=== PATIENT | female | born 1985 | race Caucasian/White ===

== ENCOUNTER 2018-04-10 15:19 | Emergency (ER) | payer OTHER ==
[~2018-04-10] VITALS: Ht 172.7 cm; Wt 54.4 kg
[~2018-04-10 15:19] MED LIST: CLEOCIN HCL300 MG PO; KEFLEX500 MG PO; NOHOMEMEDICATIONS; NORCO 5-325 TA1 EACH PO; ONDANSETRON HCL4 M2 PO; PRENATAL; ZOFRAN ODT4 MG PO; ZOFRAN ODT4 MG SUBLING
[2018-04-10] MEDS ORDERED: PROZAC20 MG PO (15:29)
[2018-04-10] MEDS ORDERED: KEFLEX500 M1 PO (15:50)
[2018-04-10] MEDS ORDERED: ACETAMINOPHEN-1 EAC1 PO (15:50)
[2018-04-10 15:56] VITALS: BP 111/67
== END 2018-04-10 15:57 | disposition home or self-care (01) ==
LOC: M.ERS 15:19
DX: L60.0 Ingrowing nail (principal)